=== PATIENT | female | born 1940 | race Hispanic/Latino ===

== ENCOUNTER 2019-03-04 09:00 | Emergency (ER) | payer OTHER ==
[~2019-03-04] VITALS: Ht 157.5 cm; Wt 59.0 kg
--- OUTSIDE RECORDS SUMMARY | 2019-03-04 09:02 | XMS REPORT | Clinical Summary ---
Author Author [facility]ET [facility] Address Unknown Phone Unavailable Care Team Providers Care Hemodialysis Charge Nurse Name Role Phone Amber Gonzalez MD PCP Unavailable Allergies Comments Active Allergy Reactions Severity Noted Date Ciprofloxacin Rash Low 10/16/2016 Benzonatate 10/16/2016 Medications End Date Status Medication Sig Dispensed Refills Start Date Active CLOPIDOGREL BISULFATE Take 75 mg by 0 (PLAVIX ORAL) mouth daily . Active ASPIRIN ORAL Take 325 mg 0 by mouth daily . Active pantoprazole (PROTONIX) Take 40 mg by 0 40 MG tablet mouth daily. Active rosuvastatin (CRESTOR) 10 Take 40 mg by 0 MG tablet mouth daily . Active atenolol (TENORMIN) 25 MG Take 25 mg by 0 tablet mouth daily. Active calcium carbonate Take 600 mg 0 (OS-CHRISTIANE) 600 mg (1,500 by mouth 2 mg) Tab (two) times daily with breakfast and dinner. Active cycloSPORINE (RESTASIS) 1 drop 2 0 0.05 % ophthalmic (two) times emulsion daily. Active fenofibrate micronized Take 200 mg 0 (LOFIBRA) 200 MG capsule by mouth every morning before breakfast. Active omega-3 fatty acids-fish Take 2 g by 0 oil 340-1,000 mg Cap per mouth 2 (two) capsule times daily. Active levothyroxine (SYNTHROID, Take 75 mcg 0 LEVOTHROID) 75 MCG tablet by mouth Every morning on an empty stomach. Active sertraline (ZOLOFT) 25 MG Take 100 mg 0 tablet by mouth daily. Active ranitidine (ZANTAC) 150 Take 150 mg 0 MG tablet by mouth 2 (two) times daily. Active iron, carbonyl 45 mg Tab Take by 0 tablet mouth. Active furosemide (LASIX) 20 MG Take 20 mg by 0 tablet mouth daily. 05/24/2018 cefUROXime (CEFTIN) 250 Take 1 tablet 14 tablet 0 201 MG tablet (250 mg 8 total) by mouth every 12 (twelve) hours for 7 days. 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 Hypothyroidism (acquired) 10/16/2016 Encounters Care Team Description Date Type Specialty Bruno Bell MD Other closed fracture of distal end of left radius, initial encounter (Primary Dx) 09/02/2018 Emergency Emergency Medicine 09/02/2018 Travel Karlos Shea MD Fall, initial encounter (Primary Dx); Contusion of face, initial encounter; Acute urinary tract infection 05/17/2018 Emergency Emergency Medicine after 03/03/2018 Social History Date Tobacco Use Types Packs/Day Years Used Never Smoker Smokeless Tobacco: Never Used Alcohol Use Drinks/Week oz/Week Comments No Sex Assigned at Date Recorded Not on file Industry Job Start Date Occupation Not on file Not on file Not on file Travel End Travel History Travel Start No recent travel history available. Last Filed Vital Signs Time Taken Vital Sign Reading 09/02/2018 5:02 AM [employer] Blood Pressure 148/76 09/02/2018 5:02 AM [employer] Pulse 84 09/02/2018 5:02 AM [employer] Temperature 36.9 C (98.4 F) 09/02/2018 5:02 AM [employer] Respiratory Rate 16 09/02/2018 5:02 AM [employer] Oxygen Saturation 97% - Inhaled Oxygen - Concentration 09/02/2018 3:40 AM [employer] Weight 60.8 kg (134 lb) 09/02/2018 3:40 AM [employer] Height 157.5 cm (5' 2") 09/02/2018 3:40 AM [employer] Body Mass Index 24.51 Plan of Treatment Not on file Procedures Comments Procedure Name Priority Date/Time Associated Diagnosis XR WRIST LEFT COMPLETE STAT 09/02/2018 (MIN 3 VIEWS) 3:52 AM [employer] XR SHOULDER LEFT COMPLETE STAT 05/17/2018 MIN 2 VIEWS 12:51 PM CDT XR CHEST PA OR AP 1 VIEW STAT 05/17/2018 IN DEPT. 12:51 PM CDT URINALYSIS W/ REFLEX STAT 05/17/2018 URINE CULTURE 12:47 PM CDT CBC W/PLT COUNT & AUTO STAT 05/17/2018 DIFFERENTIAL 12:46 PM CDT BASIC METABOLIC PANEL (7) STAT 05/17/2018 12:46 PM CDT CBC W/PLT COUNT & AUTO STAT 05/17/2018 DIFFERENTIAL 12:[address] MAXILLOFACIAL WITHOUT STAT 05/17/2018 IV CONTRAST 12:[address] SPINE CERVICAL WITHOUT STAT 05/17/2018 IV CONTRAST 12:[address] BRAIN WITHOUT IV STAT 05/17/2018 CONTRAST 12:41 PM CDT after 03/03/2018 Results * XR wrist complete 3 views min left (09/02/2018 3:52 AM [employer]) Specimen Narrative Performed At FINAL REPORT [facility] EXAMINATION: LEFT WRIST SERIES, 3 VIEWS CLINICAL INDICATION: ARM INJURY, PAIN IMPRESSION: The bones demonstrate demineralization compatible with senescent osteopenia. Degenerative osteoarthritic changes are also noted, most pronounced at the radiocarpal and first carpal metacarpal joints. The distal radial metaphysis is associated with focal cortical buckling with an adjacent nondisplaced radiolucency concerning for fracture, chronicity indeterminate but possibly acute. Recommend clinical correlation with patient's point of maximum tenderness and mechanism of injury. Soft tissues at the level of the wrist also appear markedly edematous/swollen. Recommend clinical correlation regarding a superimposed hematoma-contusion. Diffuse calcific atherosclerotic changes are noted. Signed: Jourdan Singh MD Report Verified Date/Time:09/02/2018 04:08:26 Reading Location: [address] Reading Room Procedure Note Interface, External Ris In - 09/02/2018 4:10 AM [employer] FINAL REPORT EXAMINATION: LEFT WRIST SERIES, 3 VIEWS CLINICAL INDICATION: ARM INJURY, PAIN IMPRESSION: The bones demonstrate demineralization compatible with senescent osteopenia. Degenerative osteoarthritic changes are also noted, most pronounced at the radiocarpal and first carpal metacarpal joints. The distal radial metaphysis is associated with focal cortical buckling with an adjacent nondisplaced radiolucency concerning for fracture, chronicity indeterminate but possibly acute. Recommend clinical correlation with patient's point of maximum tenderness and mechanism of injury. Soft tissues at the level of the wrist also appear markedly edematous/swollen. Recommend clinical correlation regarding a superimposed hematoma-contusion. Diffuse calcific atherosclerotic changes are noted. Signed: Jourdan Singh MD Report Verified Date/Time: 09/02/2018 04:08:26 Reading Location: [address] Reading Room Performing Organization Address [facility] Phone Number [facility] * XR shoulder complete 2 views min left (05/17/2018 12:51 PM CDT) Specimen Narrative Performed At FINAL REPORT [facility] [place] Left shoulder, two images. HISTORY: Shoulder pain. Fall. COMPARISON: None IMPRESSION: Frontal views of the left shoulder demonstrate grossly normal alignment without evidence for fracture. Signed: Charles Gilliland MD Report Verified Date/Time:05/17/2018 13:32:53 Reading Location: [facility] Reading Room Procedure Note Interface, External Ris In - 05/17/2018 1:43 PM CDT FINAL REPORT Left shoulder, two images. HISTORY: Shoulder pain. Fall. COMPARISON: None IMPRESSION: Frontal views of the left shoulder demonstrate grossly normal alignment without evidence for fracture. Signed: Charles Gilliland MD Report Verified Date/Time: 05/17/2018 13:32:53 Reading Location: [facility] Reading Room Performing Organization Address [facility] Center[facility] Phone Number [facility] * XR chest PA or AP 1 view in dept (05/17/2018 12:51 PM CDT) Specimen Narrative Performed At FINAL REPORT [facility] AP chest HISTORY: Fall COMPARISON: 10/16/2016 IMPRESSION: No acute osseous findings. Heart size upper limits of normal. Faint interstitial prominence may reflect mild edema. Signed: Charles Gilliland MD Report Verified Date/Time:05/17/2018 13:33:32 Reading Location: [facility] Reading Room Procedure Note Interface, External Ris In - 05/17/2018 1:43 PM CDT FINAL REPORT AP chest HISTORY: Fall COMPARISON: 10/16/2016 IMPRESSION: No acute osseous findings. Heart size upper limits of normal. Faint interstitial prominence may reflect mild edema. Signed: Charles Gilliland MD Report Verified Date/Time: 05/17/2018 13:33:32 Reading Location: [facility] Reading Room Performing Organization Address City/State/Zipcode Phone Number RIS * Urinalysis w/Microscopic + Reflex to Culture (05/17/2018 12:47 PM CDT) Color, UA Yellow [facility] Clarity, UA Clear [facility] Specific [place], UA 1.015 1.001 - 1.035 [facility] pH, UA 6.5 5.0 - 8.0 [facility] Protein, UA Negative Negative [facility] Glucose, UA Negative Negative [facility] Ketones, UA Negative Negative [facility] Bilirubin, UA Negative Negative [facility] Blood, UA Negative Negative [facility] Nitrite, UA Negative Negative [facility] Leukocytes, UA Small (A) Negative [facility] Urobilinogen, UA 3.0 (H) 0.2 - 1.0 mg/dL [facility] RBC, UA 0 /HPF [facility] WBC, UA 6 /HPF [facility] Mucus Rare [facility] Specimen Source [facility] Specimen Urine Performing Organization Address City/State/Zipcode Phone Number [facility] [address] [place] [address] [facility] * CBC with platelet count + automated diff (05/17/2018 12:46 PM CDT) WBC 5.0 3.5 - 10.5 K/L [facility] RBC 3.78 (L) 3.93 - 5.22 M/L [facility] Hemoglobin 10.9 (L) 11.2 - 15.7 GM/DL [facility] Hematocrit 32.2 (L) 34.1 - 44.9 % [facility] MCV 85.2 79.4 - 94.8 fL [facility] MCH 28.8 25.6 - 32.2 pg [facility] MCHC 33.9 32.2 - 35.5 GM/DL [facility] RDW 14.4 11.7 - 14.4 % [facility] Platelets 144 (L) 150 - 450 K/CU MM [facility] MPV 12.5 (H) 9.4 - 12.3 fL [facility] nRBC 0 0 - 0 /100 WBC [facility] % Neutros 51 % [facility] % Lymphs 37 % [facility] % Monos 10 % [facility] % Eos 2 % [facility] % Baso 0 % [facility] # Neutros 2.56 1.56 - 6.13 K/L [facility] # Lymphs 1.85 1.18 - 3.74 K/L [facility] # Monos 0.49 (H) 0.24 - 0.36 K/L [facility] # Eos 0.09 0.04 - 0.36 K/L [facility] # Baso 0.02 0.01 - 0.08 K/L [facility] Immature 1 0 - 1 % [facility] Granulocytes-[facility] Specimen Blood Performing Organization Address City/[facility] Centercode Phone Number [address] [address] [facility] * Basic metabolic panel (Na, K+, Cl, CO2, Glu, Ca, BUN, Cr) (05/17/2018 12:46 PM CDT) Sodium 139 136 - 145 meq/L [facility] Potassium 3.6 3.5 - 5.1 meq/L [facility] Chloride 101 98 - 107 meq/L [facility] CO2 29 22 - 29 meq/L [facility] BUN 29 (H) 7 - 21 mg/dL [facility] Creatinine 1.59 (H) 0.57 - 1.25 mg/dL [facility] Glucose 126 (H) 70 - 105 mg/dL [facility] Calcium 9.8 8.4 - 10.2 mg/dL [facility] EGFR Comment: INSUFFICIENT CLINICAL mL/min/1.73 sq m [facility] DATA TO CALCULATE ESTIMATED [facility] GFR. Specimen Blood Performing Organization Address City/[facility]/Zipcode Phone Number [address] [address] [facility] * CT spine cervical without IV contrast (05/17/2018 12:41 PM CDT) Specimen Narrative Performed At FINAL REPORT GE [facility] CT cervical spine without contrast INDICATION: Fall, jaw pain, arm pain COMPARISON: Not available TECHNIQUE: Axial noncontrast CT images of the cervical spine were obtained. Axially acquired data were reformatted in coronal and sagittal planes for further analysis. This exam was performed according to our departmental dose optimization program which includes automated exposure control, adjustment of the mA and/or kV according to patient size and/or use of iterative reconstruction technique. FINDINGS: Osteopenia limits sensitivity for fractures. There is chronic or degenerative mild vertebral height loss at C5 and C6. There is chronic appearing T2 superior endplate compression deformity without visible fracture line or perivertebral edema. Vertebral height and alignment are otherwise maintained. There is no evident facet joint subluxation. There is C1-2 arthropathy. The spinal canal and neural foramina are not well assessed without intrathecal contrast. There is multilevel degenerative disc disease, spondylosis, and facet arthropathy. Canal stenosis appears moderate at C4-5 and C5-6. Neural foraminal stenoses are potentially significant at C5-6, with other lesser foraminal stenoses. The imaged lung apices demonstrate no pneumothorax. There is atherosclerotic disease, including in the cervical carotid arteries. There are nuchal ligament dystrophic calcifications. IMPRESSION: 1. Chronic appearing mild superior endplate compression deformity at T2. No specific evidence of acute cervical spine fracture. 2. Multilevel degenerative spine changes as discussed above. Signed: Halina Zepeda MD Report Verified Date/Time:05/17/2018 13:27:22 Reading Location: [address] Neuro Reading Room Procedure Note Interface, External Ris In - 05/17/2018 1:29 PM CDT FINAL REPORT CT cervical spine without contrast INDICATION: Fall, jaw pain, arm pain COMPARISON: Not available TECHNIQUE: Axial noncontrast CT images of the cervical spine were obtained. Axially acquired data were reformatted in coronal and sagittal planes for further analysis. This exam was performed according to our departmental dose optimization program which includes automated exposure control, adjustment of the mA and/or kV according to patient size and/or use of iterative reconstruction technique. FINDINGS: Osteopenia limits sensitivity for fractures. There is chronic or degenerative mild vertebral height loss at C5 and C6. There is chronic appearing T2 superior endplate compression deformity without visible fracture line or perivertebral edema. Vertebral height and alignment are otherwise maintained. There is no evident facet joint subluxation. There is C1-2 arthropathy. The spinal canal and neural foramina are not well assessed without intrathecal contrast. There is multilevel degenerative disc disease, spondylosis, and facet arthropathy. Canal stenosis appears moderate at C4-5 and C5-6. Neural foraminal stenoses are potentially significant at C5-6, with other lesser foraminal stenoses. The imaged lung apices demonstrate no pneumothorax. There is atherosclerotic disease, including in the cervical carotid arteries. There are nuchal ligament dystrophic calcifications. IMPRESSION: 1. Chronic appearing mild superior endplate compression deformity at T2. No specific evidence of acute cervical spine fracture. 2. Multilevel degenerative spine changes as discussed above. Signed: Halina Zepeda MD Report Verified Date/Time: 05/17/2018 13:27:22 Reading Location: [address] Neuro Reading Room Performing Organization Address City/State/Zipcode Phone Number [employer] * CT maxillofacial without IV contrast (05/17/2018 12:41 PM CDT) Specimen Narrative Performed At FINAL REPORT [employer] CT maxillofacial and CT head without contrast INDICATION: Fall, jaw pain. COMPARISON: CT head 10/16/2016 TECHNIQUE: Axial noncontrast CT images of the maxillofacial structures and head were obtained. Coronal and sagittal reconstruction images were generated. This exam was performed according to our departmental dose optimization program which includes automated exposure control, adjustment of the mA and/or kV according to patient size and/or use of iterative reconstruction technique. FINDINGS: CT maxillofacial: There is facial soft tissue swelling. No acute facial bone or orbital wall fracture is seen. There has been bilateral cataract surgery. There is no retrobulbar hematoma bilaterally. A small left posterior ethmoid sinus osteoma and mild bilateral ethmoid sinus chronic mucosal thickening are noted. The remaining sinuses are well aerated, with no air-fluid levels. The mastoid air cells are clear. Cervical spine degenerative changes and cervical carotid arteries chronic disease are partially imaged. CT head: There is no scalp hematoma or acute calvarial fracture. No acute intra or extra-axial hemorrhage is seen. Volume loss with temporal lobe predominance, extensive vascular calcifications, and vertebrobasilar dolichoectasia are again seen. Microvascular ischemic changes are chronic appearing, including a tiny right caudate nucleus infarct. There is no hydrocephalus, mass effect, or midline shift. There is mild chronic sinus mucosal thickening. The mastoid air cells are clear. There has been cataract surgery. Other maxillofacial findings are discussed above. IMPRESSION: 1. No acute facial or orbital fracture or retrobulbar hematoma. 2. No acute intracranial hemorrhage or calvarial fracture. 3. Additional chronic appearing findings as discussed above. Signed: Halina Zepeda MD Report Verified Date/Time:05/17/2018 13:27:58 Reading Location: [id number] Neuro Reading Room Procedure Note Interface, External Ris In - 05/17/2018 1:30 PM CDT FINAL REPORT CT maxillofacial and CT head without contrast INDICATION: Fall, jaw pain. COMPARISON: CT head 10/16/2016 TECHNIQUE: Axial noncontrast CT images of the maxillofacial structures and head were obtained. Coronal and sagittal reconstruction images were generated. This exam was performed according to our departmental dose optimization program which includes automated exposure control, adjustment of the mA and/or kV according to patient size and/or use of iterative reconstruction technique. FINDINGS: CT maxillofacial: There is facial soft tissue swelling. No acute facial bone or orbital wall fracture is seen. There has been bilateral cataract surgery. There is no retrobulbar hematoma bilaterally. A small left posterior ethmoid sinus osteoma and mild bilateral ethmoid sinus chronic mucosal thickening are noted. The remaining sinuses are well aerated, with no air-fluid levels. The mastoid air cells are clear. Cervical spine degenerative changes and cervical carotid arteries chronic disease are partially imaged. CT head: There is no scalp hematoma or acute calvarial fracture. No acute intra or extra-axial hemorrhage is seen. Volume loss with temporal lobe predominance, extensive vascular calcifications, and vertebrobasilar dolichoectasia are again seen. Microvascular ischemic changes are chronic appearing, including a tiny right caudate nucleus infarct. There is no hydrocephalus, mass effect, or midline shift. There is mild chronic sinus mucosal thickening. The mastoid air cells are clear. There has been cataract surgery. Other maxillofacial findings are discussed above. IMPRESSION: 1. No acute facial or orbital fracture or retrobulbar hematoma. 2. No acute intracranial hemorrhage or calvarial fracture. 3. Additional chronic appearing findings as discussed above. Signed: Halina Zepeda MD Report Verified Date/Time: 05/17/2018 13:27:58 Reading Location: [address] Neuro Reading Room Performing Organization Address City/State/Zipcode Phone Number [employer] * CT brain without IV contrast (05/17/2018 12:41 PM CDT) Specimen Narrative Performed At FINAL REPORT [employer] CT maxillofacial and CT head without contrast INDICATION: Fall, jaw pain. COMPARISON: CT head 10/16/2016 TECHNIQUE: Axial noncontrast CT images of the maxillofacial structures and head were obtained. Coronal and sagittal reconstruction images were generated. This exam was performed according to our departmental dose optimization program which includes automated exposure control, adjustment of the mA and/or kV according to patient size and/or use of iterative reconstruction technique. FINDINGS: CT maxillofacial: There is facial soft tissue swelling. No acute facial bone or orbital wall fracture is seen. There has been bilateral cataract surgery. There is no retrobulbar hematoma bilaterally. A small left posterior ethmoid sinus osteoma and mild bilateral ethmoid sinus chronic mucosal thickening are noted. The remaining sinuses are well aerated, with no air-fluid levels. The mastoid air cells are clear. Cervical spine degenerative changes and cervical carotid arteries chronic disease are partially imaged. CT head: There is no scalp hematoma or acute calvarial fracture. No acute intra or extra-axial hemorrhage is seen. Volume loss with temporal lobe predominance, extensive vascular calcifications, and vertebrobasilar dolichoectasia are again seen. Microvascular ischemic changes are chronic appearing, including a tiny right caudate nucleus infarct. There is no hydrocephalus, mass effect, or midline shift. There is mild chronic sinus mucosal thickening. The mastoid air cells are clear. There has been cataract surgery. Other maxillofacial findings are discussed above. IMPRESSION: 1. No acute facial or orbital fracture or retrobulbar hematoma. 2. No acute intracranial hemorrhage or calvarial fracture. 3. Additional chronic appearing findings as discussed above. Signed: Halina Zepeda MD Report Verified Date/Time:05/17/2018 13:27:58 Reading Location: [address] Neuro Reading Room Procedure Note Interface, External Ris In - 05/17/2018 1:30 PM CDT FINAL REPORT CT maxillofacial and CT head without contrast INDICATION: Fall, jaw pain. COMPARISON: CT head 10/16/2016 TECHNIQUE: Axial noncontrast CT images of the maxillofacial structures and head were obtained. Coronal and sagittal reconstruction images were generated. This exam was performed according to our departmental dose optimization program which includes automated exposure control, adjustment of the mA and/or kV according to patient size and/or use of iterative reconstruction technique. FINDINGS: CT maxillofacial: There is facial soft tissue swelling. No acute facial bone or orbital wall fracture is seen. There has been bilateral cataract surgery. There is no retrobulbar hematoma bilaterally. A small left posterior ethmoid sinus osteoma and mild bilateral ethmoid sinus chronic mucosal thickening are noted. The remaining sinuses are well aerated, with no air-fluid levels. The mastoid air cells are clear. Cervical spine degenerative changes and cervical carotid arteries chronic disease are partially imaged. CT head: There is no scalp hematoma or acute calvarial fracture. No acute intra or extra-axial hemorrhage is seen. Volume loss with temporal lobe predominance, extensive vascular calcifications, and vertebrobasilar dolichoectasia are again seen. Microvascular ischemic changes are chronic appearing, including a tiny right caudate nucleus infarct. There is no hydrocephalus, mass effect, or midline shift. There is mild chronic sinus mucosal thickening. The mastoid air cells are clear. There has been cataract surgery. Other maxillofacial findings are discussed above. IMPRESSION: 1. No acute facial or orbital fracture or retrobulbar hematoma. 2. No acute intracranial hemorrhage or calvarial fracture. 3. Additional chronic appearing findings as discussed above. Signed: Halina Zepeda MD Report Verified Date/Time: 05/17/2018 13:27:58 Reading Location: [address] Neuro Reading Room Performing Organization Address City/State/Zipcode Phone Number GE RIS after 03/03/2018 Insurance Payer Benefit Subscriber ID Type Phone Address Plan / Group TEX[employer] TEX[employer] xxxxxxxxx [facility] Advance Directives For more information, please contact: [address] [address] Date Inactivated Comments Code Status Date Activated 10/17/2016 5:09 PM Full Code 10/16/2016 8:42 PM This code status was determined by: Patient
--- OUTSIDE RECORDS SUMMARY | 2019-03-04 09:02 | XMS REPORT ---
Author Author [facility] Address Unknown Phone Unavailable Care Team Providers Care Real Estate Appraiser Name Role Phone TREMAYNE CURTIS Unavailable Unavailable Problems This patient has no known problems. Allergies, Adverse Reactions, Alerts This patient has no known allergies or adverse reactions. Medications This patient has no known medications. Results Test Description Test Time Test Comments Text Results Atomic Results Result Comments RAD, WRIST, LEFT, COMPLETE (MIN 3 VIEWS) 2018-09-02 04:08:00 Reason for exam:- >ARM INJURY FINAL REPORT EXAMINATION: LEFT WRIST SERIES, 3 [...] Diffuse calcific atherosclerotic changes are noted. Signed: William Singh MDReport Verified Date/Time: 09/02/2018 04:08:26 Reading Location: [address] Reading Room ALYSIS W/ REFLEX URINE CULTURE 2018-05-17 15:04:00 COLOR (BEAKER) (test cnwi=471) Yellow CLARITY (BEAKER) (test zfps=739) Clear SPECIFIC GRAVITY UA (BEAKER) (test hdug=381) 1.015 1.001-1.035 PH UA (BEAKER) (test aeix=682) 6.5 5.0-8.0 PROTEIN UA (BEAKER) (test lsji=703) Negative Negative GLUCOSE UA (BEAKER) (test yplf=204) Negative Negative KETONES UA (BEAKER) (test rloi=046) Negative Negative BILIRUBIN UA (BEAKER) (test hkha=383) Negative Negative BLOOD UA (BEAKER) (test tcdq=156) Negative Negative NITRITE UA (BEAKER) (test swez=387) Negative Negative LEUKOCYTE ESTERASE UA (BEAKER) (test cljp=229) Small Negative UROBILINOGEN UA (BEAKER) (test xoov=753) 3.0 mg/dL 0.2-1.0 RBC UA (BEAKER) (test untr=098) 0 /HPF WBC UA (BEAKER) (test spjh=822) 6 /HPF MUCUS (BEAKER) (test vnra=1157) Rare SOURCE(BEAKER) (test ilso=4372) BASIC METABOLIC [id number] 14:02:00* Test Item Value Reference Range Comments SODIUM (BEAKER) (test ghri=053) 139 meq/L 136-145 POTASSIUM (BEAKER) (test mkwn=699) 3.6 meq/L 3.5-5.1 CHLORIDE (BEAKER) (test cyjn=954) 101 meq/L 98-107 CO2 (BEAKER) (test kfda=250) 29 meq/L 22-29 BLOOD UREA NITROGEN (BEAKER) (test ftsu=060) 29 mg/dL 7-21 CREATININE (BEAKER) (test qtcy=298) 1.59 mg/dL 0.57-1.25 GLUCOSE RANDOM (BEAKER) (test fbrp=389) 126 mg/dL 70-105 CALCIUM (BEAKER) (test szbr=001) 9.8 mg/dL 8.4-10.2 EGFR (BEAKER) (test luxw=9840) mL/min/1.73 sq m INSUFFICIENT CLINICAL DATA TO CALCULATE ESTIMATED GFR. RAD, CHEST, PA OR AP, 1 [id number] 13:33:00Reason for exam:->FALLReason for exam:->ARM PAINReason for exam:->JAW PAINFINAL REPORT AP chest HISTORY: Fall COMPARISON: 10/16/2016 IMPRESSION:No acute osseous findings. Heart size upper limits of normal. Faint interstitial prominence may reflect mild edema. Signed: Charles Gilliland MDReport Verified Date/Time: 05/17/2018 13:33:32 Reading Location: [facility] Reading Room , SHOULDER, COMPLETE (MIN 2 VIEWS), [id number] 13:32:00Reason for exam:->FALLReason for exam:->ARM PAINReason for exam:->JAW PAINFINAL REPORT Left shoulder, two images. HISTORY: Shoulder pain. Fall. COMPARISON: None IMPRESSION:Frontal views of the left shoulder demonstrate grossly normal alignment without evidence for fracture. Signed: Charles Gilliland MDReport Verified Date/Time: 05/17/2018 13:32:53 Reading Location: [facility] Reading Room , SPINE, CERVICAL, WO [id number] 13:27:00Reason for exam:->FALLReason for exam:->ARM PAINReason for exam:->JAW PAINWhat is the patient's sedation requirement?->No SedationFINAL REPORT CT cervical spine without contrast INDICATION: [...] size and/or use of iterative reconstruction technique. FINDINGS:Osteopenia limits sensitivity for fractures. There is chronic [...] changes as discussed above. Signed: Halina Zepeda MDReport Verified Date/Time: 05/17/2018 13:27:22 Reading Location: [address] Neuro Reading Room , BRAIN, WITHOUT [id number] 13:27:00Reason for exam:->FALLReason for exam:->ARM PAINReason for exam:->JAW PAINWhat is the patient's sedation requirement?->No SedationFINAL REPORT CT maxillofacial and CT head without [...] use of iterative reconstruction technique. FINDINGS: CT maxillofacial:There is facial soft tissue swelling. No acute [...] findings as discussed above. Signed: Halina Zepeda MDReport Verified Date/Time: 05/17/2018 13:27:58 Reading Location: [facility] Neuro Reading Room , MAXILLOFACIAL AREA, WO [id number] 13:27:00Reason for exam:- >FALLReason for exam:->ARM PAINReason for exam:->JAW PAINWhat is the patient's sedation requirement?->No SedationFINAL REPORT CT maxillofacial and CT head without [...] use of iterative reconstruction technique. FINDINGS: CT maxillofacial:There is facial soft tissue swelling. No acute facial bone or orbital wall fracture is seen. There has been bilateral cataract surgery. There is no retrobulbar hematoma bilaterally. A small left posterior ethmoid sinus osteoma and mild bilateral et hmoid sinus chronic mucosal thickening are noted. The remaining sinuses are well aerated, with no air-fluid levels. The mastoid air cells are clear. Cervical sp ine degenerative changes and cervical carotid arteries chronic disease are parti ally imaged. CT head: There is no scalp hematoma or acute calvarial fracture. No acute intra or extra-axial hemorrhage is seen. Volume loss with temporal lobe p redominance, extensive vascular calcifications, and vertebrobasilar dolichoectas ia are again seen. Microvascular ischemic changes are chronic appearing, includi ng a tiny right caudate nucleus infarct. There is no hydrocephalus, mass effect, or midline shift. There is mild chronic sinus mucosal thickening. The mastoid a ir cells are clear. There has been cataract surgery. Other maxillofacial finding s are discussed above. IMPRESSION: 1. No acute facial or orbital fracture or ret robulbar hematoma. 2. No acute intracranial hemorrhage or calvarial fracture. 3. Additional chronic appearing findings as discussed above. Signed: Nicole Zepeda MDReport Verified Date/Time: 05/17/2018 13:27:58 Reading Location: [facility] Neuro Reading Room W/PLT COUNT & AUTO [id number] 13:25:00 * Test Item Value Reference Range Comments WHITE BLOOD CELL COUNT (BEAKER) (test icvr=554) 5.0 K/ L 3.5-10.5 RED BLOOD CELL COUNT (BEAKER) (test cgrq=507) 3.78 M/ L 3.93-5.22 HEMOGLOBIN (BEAKER) (test qapi=841) 10.9 GM/DL 11.2-15.7 HEMATOCRIT (BEAKER) (test qdzf=641) 32.2 % 34.1-44.9 MEAN CORPUSCULAR VOLUME (BEAKER) (test xuly=761) 85.2 fL 79.4-94.8 MEAN CORPUSCULAR HEMOGLOBIN (BEAKER) (test wzjo=498) 28.8 pg 25.6-32.2 MEAN CORPUSCULAR HEMOGLOBIN CONC (BEAKER) (test nhdh=020) 33.9 GM/DL 32.2-35.5 RED CELL DISTRIBUTION WIDTH (BEAKER) (test usge=632) 14.4 % 11.7-14.4 PLATELET COUNT (BEAKER) (test mnon=485) 144 K/CU MM 150-450 MEAN PLATELET VOLUME (BEAKER) (test qdhg=679) 12.5 fL 9.4-12.3 NUCLEATED RED BLOOD CELLS (BEAKER) (test gnrx=885) 0 /100 WBC 0-0 NEUTROPHILS RELATIVE PERCENT (BEAKER) (test iaar=657) 51 % LYMPHOCYTES RELATIVE PERCENT (BEAKER) (test wesh=402) 37 % MONOCYTES RELATIVE PERCENT (BEAKER) (test jcwr=021) 10 % EOSINOPHILS RELATIVE PERCENT (BEAKER) (test sxhr=130) 2 % BASOPHILS RELATIVE PERCENT (BEAKER) (test cwkd=275) 0 % NEUTROPHILS ABSOLUTE COUNT (BEAKER) (test ohwm=882) 2.56 K/ L 1.56-6.13 LYMPHOCYTES ABSOLUTE COUNT (BEAKER) (test dooe=396) 1.85 K/ L 1.18-3.74 MONOCYTES ABSOLUTE COUNT (BEAKER) (test dqdp=893) 0.49 K/ L 0.24-0.36 EOSINOPHILS ABSOLUTE COUNT (BEAKER) (test oznv=072) 0.09 K/ L 0.04-0.36 BASOPHILS ABSOLUTE COUNT (BEAKER) (test niyu=475) 0.02 K/ L 0.01-0.08 IMMATURE GRANULOCYTES-RELATIVE PERCENT (BEAKER) (test xxci=8494) 1 % 0-1
[2019-03-04] MEDS ORDERED: ACETAMINOPHEN 325 MG TAB PO NR (09:15)
--- NOTE | 2019-03-04 10:15 | Diagnostic Imaging Report ---
History:Fall, hit left side of the face Comparison studies:None Technique: Axial images were obtained from the skull base to the vertex. Coronal and sagittal images reconstructed from the axial data. Intravenous contrast: None Dose modulation, iterative reconstruction, and/or weight based adjustment of the mA/kV was utilized to reduce the radiation dose to as low as reasonably achievable. Findings: Scalp/skull: No abnormalities. Extra-axial spaces: No masses. No fluid collections. Brain sulci: Mildly prominent. Ventricles: Mild compensatory dilatation. No hydrocephalus. Parenchyma: Small hypodensities in the supratentorial white matter are small vessel ischemic changes. No masses, hemorrhage, acute or chronic cortical vascular insults. Sellar/suprasellar region: No abnormalities. Craniocervical junction: Patent foramen magnum. No Chiari one malformation. Incidental findings: Atherosclerotic calcifications in the carotid siphons and dolichoectatic right vertebral artery artery . Bilateral cataract surgery changes Impression: No acute abnormalities. Chronic findings: 1. Mild generalized volume loss. 2. Mild supratentorial white matter small vessel ischemic changes. Signed by: DR Wilfred Caldera M.D. on 03/04/2019 10:12 AM
--- NOTE | 2019-03-04 10:28 | Diagnostic Imaging Report ---
History:Fall, hit left side of the face Comparison studies: None Technique: Axial images were obtained through the maxillofacial region. Coronal and sagittal images reconstructed from the axial data. Intravenous contrast: None Dose modulation, iterative reconstruction, and/or weight based adjustment of the mA/kV was utilized to reduce the radiation dose to as low as reasonably achievable. Findings: Soft tissues: Soft tissue hematoma at the left premaxillary and right zygomatic region. Atherosclerotic calcifications of the carotid bulbs Bones: No fractures or bone abnormalities. Orbits: Globes: No acute abnormality. Bilateral cataract surgery changes Extra or intraconal abnormalities: None. Paranasal sinuses: Clear Degenerative changes of the atlantoaxial joint partially visualized. IMPRESSION: 1. Left premaxillary and prezygomatic soft tissue hematoma without underlying fracture Signed by: DR Wilfred Caldera M.D. on 03/04/2019 10:25 AM
--- NOTE | 2019-03-04 10:32 | Diagnostic Imaging Report ---
History: Fall, hit left side of the face Comparison studies: None Technique: Axial images were obtained through the cervical region.. Coronal and sagittal images reconstructed from the axial data.. Intravenous contrast: None Dose modulation, iterative reconstruction, and/or weight based adjustment of the mA/kV was utilized to reduce the radiation dose to as low as reasonably achievable. Findings: Fractures: None. Soft tissues: No gross abnormalities. Atlantoaxial articulation: Degenerative changes without acute abnormality. Alignment: Normal lordosis. No scoliosis. Cervicomedullary junction: No abnormalities. The foramen magnum is patent. Vertebrae: No infection or neoplasm. Degenerative changes: At C5-6, moderate right and mild left foraminal narrowing, the remaining foramina are grossly patent (no moderate or severe narrowing). Small disc osteophyte complexes from C4 through C7 results in mild canal stenosis IMPRESSION: 1. No acute cervical spine abnormalities. Degenerative changes as described above. 2. Cannot exclude ligament, spinal cord and or vascular abnormalities on the basis of this examination. Signed by: DR Wilfred Caldera M.D. on 03/04/2019 10:28 AM
[2019-03-04 10:49] VITALS: BP 138/50
== END 2019-03-04 10:54 | disposition home or self-care (01) ==
LOC: ER 09:00
DX: S00.12XA Contusion of left eyelid and periocular area, initial encounter (principal); M54.2 Cervicalgia; W06.XXXA Fall from bed, initial encounter; Y93.84 Activity, sleeping; Y92.003 Bedroom of unspecified non-institutional (private) residence as the place of occurrence of the external cause; G30.9 Alzheimer's disease, unspecified; F02.80 Dementia in other diseases classified elsewhere, unspecified severity, without behavioral disturbance, psychotic disturbance, mood disturbance, and anxiety; I10 Essential (primary) hypertension; E11.9 Type 2 diabetes mellitus without complications; I51.9 Heart disease, unspecified
CPT/HCPCS: 70450; 70486; 72125; 99283

== ENCOUNTER 2020-03-12 10:51 | Emergency (ER) | payer OTHER ==
[~2020-03-12] VITALS: Ht 157.5 cm; Wt 59.0 kg
--- OUTSIDE RECORDS SUMMARY | 2020-03-12 10:54 | XMS REPORT | Clinical Summary ---
Author Author [facility] Address Unknown Phone Unavailable Care Team Providers Care Soil Checker Name Role Phone Amber Gonzalez MD PCP [...] 20 mg by 0 tablet mouth daily. 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 Last Filed Vital Signs Not on file Plan of Treatment Not on file Results Not on fileafter 03/12/2019 Insurance Payer Benefit Subscriber ID Type Phone Address Plan / Group TEXAN[employer] TEX[facility]US x[facility] [phone] [phone] [address] [facility] (Home) [place] [address] Advance Directives For more information, please contact: [facility] [address] [place] [address] Date Inactivated Comments Code Status Date Activated 10/17/2016 5:09 PM Full Code 10/16/2016 8:42 PM This code status was determined by: Patient
--- OUTSIDE RECORDS SUMMARY | 2020-03-12 10:54 | XMS REPORT ---
Author Author [facility] t Organization [facility] Address [address] [place] [address] Phone Unavailable Care Team Providers Care Violin Repairer Name Role Phone CHOLO Plummer, Moi PECK PCP Alex HOBSON Attphys Unavailable TREMAYNE CURTIS Attphys Unavailable Payers Payer Name Policy Type Policy Number Effective Date Expiration Date Yumi Enriquez [id number] 2018 00:00:00 [facility] Problems This patient has no known problems. Allergies, Adverse Reactions, Alerts This patient has no known allergies or adverse reactions. Medications This patient has no known medications. Procedures Procedure Date / Time Performed Performing Clinician Sour e Computed tomography of brain without radiopaque contrast 201 06-30-10 00:00:00 IRINEO HOBSON [facility] Computed tomography of cervical spine without contrast 03-04 00:00:00 IRINEO HOBSON [facility] CT maxillofacial area wo contrast 2019-03-04 00:00:[address] [facility] Encounters Start Date/Time End Date/Time Encounter Type Admission Type Attendi [facility] Care Department Encounter ID Source 2019-03-04 09:00:2019-03-04 10:54:00 Departed Emergency Room 1 IRINEO HOBSON [facility] [id number] [facility] Results Test Description Test Time Test Comments Results Result Comments Source CT CERVICAL SPINE WO 2019-03-04 10:25:00 [facility] [address] [address] Patient Name: AI OLIVARES MR #: [id number] : 1940 Age/Sex: 78/F Req #: [id number] Adm Physician: Ordered by: IRINEO HOBSON MD Report #: [id number] Location: ER Room/Bed: Procedure: [id number] CT/CT CERVICAL SPINE WO Exam Date: 03/04/19 Exam Time: 930 REPORT STATUS: Signed History: Fall, hit left side of the face Comparison studies: None Technique: Axial images were obtained through the cervical region.. Coronal and sagittal images reconstructed from the axial data.. Intravenous contrast: None Dose modulation, iterative reconstruction, and/or weight based adjustment of the mA/kV was utilized to reduce the radiation dose to as low as reasonably achievable. Findings: Fractures: None. Soft tissues: No gross abnormalities. Atlantoaxial articulation: Degenerative changes without acute abnormality. Alignment: Normal lordosis. No scoliosis. Cervicomedullary junction: No abnormalities. The foramen magnum is patent. Vertebrae: No infection or neoplasm. Degenerative changes: At C5-6, moderate right and mild left foraminal narrowing, the remaining foramina are grossly patent (no moderate or severe narrowing). Small disc osteophyte complexes from C4 through C7 results in mild canal stenosis IMPRESSION: 1. No acute cervical spine abnormalities. Degenerative changes as described above. 2. Cannot exclude ligament, spinal cord and or vascular abnormalities on the basis of this examination. Signed by: DR Wilfred Caldera M.D. on 03/04/2019 10:28 AM Dictated By: WILFRED ROY MD 1028 Transcribed By: RUPERTO on 03/04/19 1028 COPY TO: IRINEO HOBSON MD CT MAXIO FAC/PARANMAIKEL WO 2019-03-04 10:18:[address] [address] Patient Name: AI OLIVARES MR #: [id number] : 1940 Age/Sex: 78/F Req #: [id number] Adm Physician: Ordered by: IRINEO HOBSON MD Report #: [id number] Location: ER Room/Bed: Procedure: [id number] CT/CT MAXIO FAC/PARANMAIKEL WO Exam Date: 03/04/19 Exam Time: 0931 REPORT STATUS: Signed History:Fall, hit left side of the face Comparison studies: None Technique: Axial images were obtained through the maxillofacial region. Coronal and sagittal images reconstructed from the axial data. Intravenous contrast: None Dose modulation, iterative reconstruction, and/or weight based adjustment of the mA/kV was utilized to reduce the radiation dose to as low as reasonably achievable. Findings: Soft tissues: Soft tissue hematoma at the left premaxillary and right zygomatic region. Atherosclerotic calcifications of the carotid bulbs Bones: No fractures or bone abnormalities. Orbits: Globes: No acute abnormality. Bilateral cataract surgery changes Extra or intraconal abnormalities: None. Paranasal sinuses: Clear Degenerative changes of the atlantoaxial joint partially visualized. IMPRESSION: 1. Left premaxillary and prezygomatic soft tissue hematoma without underlying fracture Signed by: DR Wilfred Caldera M.D. on 03/04/2019 10:25 AM Dictated By: WILFRED ROY MD 1025 Transcribed By: RUPERTO on 03/04/19 1025 COPY TO: IRINEO HOBSON MD CT BRAIN WO 2019-03-04 10:09:00 [address] [address] Patient Name: AI OLIVARES MR #: [id number] : 1940 Age/Sex: 78/F Req #: [id number] Adm Physician: Ordered by: IRINEO HOBSON MD Report #: [id number] Location: ER Room/Bed: Procedure: [id number] CT/CT BRAIN WO Exam Date: 03/04/19 Exam Time: 930 REPORT STATUS: Signed History:Fall, hit left side of the face Comparison studies:None Technique: Axial images were obtained from the skull base to the vertex. Coronal and sagittal images reconstructed from the axial data. Intravenous contrast: None Dose modulation, iterative reconstruction, and/or weight based adjustment of the mA/kV was utilized to reduce the radiation dose to as low as reasonably achievable. Findings: Scalp/skull: No abnormalities. Extra-axial spaces: No masses. No fluid collections. Brain sulci: Mildly prominent. Ventricles: Mild compensatory dilatation. No hydrocephalus. Parenchyma: Small hypodensities in the supratentorial white matter are small vessel ischemic changes. No masses, hemorrhage, acute or chronic cortical vascular insults. Sellar/suprasellar region: No abnormalities. Craniocervical junction: Patent foramen magnum. No Chiari one malformation. Incidental findings: Atherosclerotic calcifications in the carotid siphons and dolichoectatic right vertebral artery artery . Bilateral cataract surgery changes Impression: No acute abnormalities. Chronic findings: 1. Mild generalized volume loss. 2. Mild supratentorial white matter small vessel isc hemic changes. Signed by: DR Wilfred Caldera M.D. on 03/04/2019 10:12 AM Dictated By: WILFRED ROY MD 1012 Transcribed By: RUPERTO on 03/04/19 1012 COPY TO: IRINEO HOBSON MD RAD, WRIST, LEFT, COMPLETE (MIN 3 VIEWS) 2018-09-02 04:08:00 Reason for exam:- >ARM INJURY FINAL REPORT EXAM INATION: LEFT WRIST SERIES, 3 VIEWS CLINICAL INDICATION: [...] MDReport Verified Date/Time: 09/02/2018 04:08:26 Reading Location: [address] Reading Room ALYSIS W/ REFLEX URINE CULTURE 2018-05-17 15:04:00 Test Item COLOR (BEAKER) (test code = 470) Yellow CLARITY (BEAKER) (test code = 469) Clear SPECIFIC GRAVITY UA (BEAKER) (test code = 468) 1.015 1.001-1 .035 PH UA (BEAKER) (test code = 467) 6.5 5.0-8.0 PROTEIN UA (BEAKER) (test code = 464) Negative Negative GLUCOSE UA (BEAKER) (test code = 365) Negative Negative KETONES UA (BEAKER) (test code = 371) Negative Negative BILIRUBIN UA (BEAKER) (test code = 462) Negative Negative BLOOD UA (BEAKER) (test code = 461) Negative Negative NITRITE UA (BEAKER) (test code = 465) Negative Negative LEUKOCYTE ESTERASE UA (BEAKER) (test code = 466) Small Negat leeroy A UROBILINOGEN UA (BEAKER) (test code = 463) 3.0 mg/dL 0.2-1.0 H RBC UA (BEAKER) (test code = 519) 0 /HPF WBC UA (BEAKER) (test code = 520) 6 /HPF MUCUS (BEAKER) (test code = 1574) Rare SOURCE(BEAKER) (test code = 2795) BASIC METABOLIC [id number] 14:02:00* Test Item Value Reference Range Interpretation Comments SODIUM (BEAKER) (test code = 381) 139 meq/L 136-145 POTASSIUM (BEAKER) (test code = 379) 3.6 meq/L 3.5-5.1 CHLORIDE (BEAKER) (test code = 382) 101 meq/L 98-107 CO2 (BEAKER) (test code = 355) 29 meq/L 22-29 BLOOD UREA NITROGEN (BEAKER) (test code = 354) 29 mg/dL 7-21 H CREATININE (BEAKER) (test code = 358) 1.59 mg/dL 0.57-1.25 H GLUCOSE RANDOM (BEAKER) (test code = 652) 126 mg/dL 70-105 H CALCIUM (BEAKER) (test code = 697) 9.8 mg/dL 8.4-10.2 EGFR (BEAKER) (test code = 1092) mL/min/1.73 sq m INSUFFICIENT CLINICAL DATA TO CALCULATE ESTIMATED GFR. RAD, CHEST, PA OR AP, 1 [id number] 13:33:00Reason for exam:->FALLReason for exam:->ARM PAINReason for exam:->JAW PAINFINAL REPORT AP chest HISTORY: Fall COMPARISON: 10/16/2016 IMPRESSION:No acute osseous findings. Heart size upper limits of normal. Faint interstitial prominence may reflect mild edema. Signed: Charles Gilliland MDReport Verified Date/Time: 05/17/2018 13:33:32 Reading Location: [facility] Reading Room , SHOULDER, COMPLETE (MIN 2 VIEWS), [id number] 13:32:00Reason for exam:->FALLReason for exam:->ARM PAINReason for exam:->JAW PAINFINAL REPORT Left shoulder, two images. HISTORY: Shoulder pain. Fall. COMPARISON: None IMPRESSION:Frontal views of the left shoulder demonstrate grossly normal alignment without evidence for fracture. Signed: Charles Glililand Verified Date/Time: 05/17/2018 13:32:53 Reading Location: [facility] Reading Room , SPINE, CERVICAL, WO [id number] 13:27:00Reason for exam:->FALLReason for exam:->ARM PAINReason for [...] MDReport Verified Date/Time: 05/17/2018 13:27:22 Reading Location: [address] Neuro Reading Room , BRAIN, WITHOUT [id number] 13:27:00Reason for exam:->FALLReason for exam:->ARM PAINReason for [...] MDReport Verified Date/Time: 05/17/2018 13:27:58 Reading Location: [facility] B1 C013V Neuro Reading Room , MAXILLOFACIAL AREA, WO [id number] 13:27:00Reason for exam:- >FALLReason for exam:->ARM PAINReason [...] MDReport Verified Date/Time: 05/17/2018 13:27:58 Reading Location: [facility] C013V Neuro Reading Room W/PLT COUNT & AUTO [id number] 13:25:00 * Test Item Value Reference Range Interpretation Comments WHITE BLOOD CELL COUNT (BEAKER) (test code = 775) 5.0 K/ L 3.5- 10.5 RED BLOOD CELL COUNT (BEAKER) (test code = 761) 3.78 M/ L 3.93-5 .22 L HEMOGLOBIN (BEAKER) (test code = 410) 10.9 GM/DL 11.2-15.7 L HEMATOCRIT (BEAKER) (test code = 411) 32.2 % 34.1-44.9 L MEAN CORPUSCULAR VOLUME (BEAKER) (test code = 753) 85.2 fL 79. 4-94.8 MEAN CORPUSCULAR HEMOGLOBIN (BEAKER) (test code = 751) 28.8 pg 25.6-32.2 MEAN CORPUSCULAR HEMOGLOBIN CONC (BEAKER) (test code = 752) 33.9 GM/DL 32.2-35.5 RED CELL DISTRIBUTION WIDTH (BEAKER) (test code = 412) 14.4 % 11.7-14.4 PLATELET COUNT (BEAKER) (test code = 756) 144 K/CU MM 150-450 L MEAN PLATELET VOLUME (BEAKER) (test code = 754) 12.5 fL 9.4-12 .3 H NUCLEATED RED BLOOD CELLS (BEAKER) (test code = 413) 0 /100 WBC 0 -0 NEUTROPHILS RELATIVE PERCENT (BEAKER) (test code = 429) 51 % LYMPHOCYTES RELATIVE PERCENT (BEAKER) (test code = 430) 37 % MONOCYTES RELATIVE PERCENT (BEAKER) (test code = 431) 10 % EOSINOPHILS RELATIVE PERCENT (BEAKER) (test code = 432) 2 % BASOPHILS RELATIVE PERCENT (BEAKER) (test code = 437) 0 % NEUTROPHILS ABSOLUTE COUNT (BEAKER) (test code = 670) 2.56 K/ L 1.56-6.13 LYMPHOCYTES ABSOLUTE COUNT (BEAKER) (test code = 414) 1.85 K/ L 1.18-3.74 MONOCYTES ABSOLUTE COUNT (BEAKER) (test code = 415) 0.49 K/ L 0. 24-0.36 H EOSINOPHILS ABSOLUTE COUNT (BEAKER) (test code = 416) 0.09 K/ L 0.04-0.36 BASOPHILS ABSOLUTE COUNT (BEAKER) (test code = 417) 0.02 K/ L 0. 01-0.08 IMMATURE GRANULOCYTES-RELATIVE PERCENT (BEAKER) (test code = 2801) 1 % 0-1
--- NOTE | 2020-03-12 12:12 | Diagnostic Imaging Report ---
CT MAXIO FAC/PARANAS WO HISTORY: Fall COMPARISON: Face CT 03/04/2019 TECHNIQUE: Axial CT images through the face were obtained without contrast. Coronal/sagittal reformations were created. One or more of the following dose reduction techniques were used: Automated exposure control, adjustment of the mA and/or kV according to patient size, and/or utilization of iterative reconstruction technique. DISCUSSION: Mild right periorbital subcutaneous edema is present. No acute fracture is seen. There are mild degenerative changes throughout the spine. The orbits are intact. Bilateral ocular lens replacement are noted. Intraorbital contents are otherwise grossly unremarkable. The paranasal sinuses are clear. There is mild generalized cerebral volume loss. Mild periventricular white matter hypodensities are likely chronic microvascular ischemic changes. Carotid siphon and intradural vertebral artery calcifications are present. Mild to moderate bilateral carotid bulb calcified plaque is also seen. The submandibular glands are atrophic. IMPRESSION: No acute osseous abnormalities in the face. Signed by: Dr. Piero Mcqueen M.D. on 03/12/2020 12:09 PM
--- NOTE | 2020-03-12 13:11 | Diagnostic Imaging Report ---
Right knee, 3 views. History: Fall. Findings: There is prepatellar soft tissue swelling and increase suprapatellar soft tissue density. The bones are osteopenic. A transverse fracture of the inferior portion of the patella is present with 1 cm inferior displacement. The remaining bones are intact. There are no lytic or sclerotic lesions. Mild medial joint space narrowing with osteophytosis is present. Vascular calcifications are noted. IMPRESSION: Transverse inferior patellar fracture with associated joint effusion. Signed by: Jerome Sousa on 03/12/2020 1:08 PM
--- NOTE | 2020-03-12 13:13 | Diagnostic Imaging Report ---
Left forearm, 2 views. History: Fall. Findings: There are diffuse vascular calcifications. The bones are diffusely osteopenic. There is no evidence of fracture or dislocation. There are no lytic or sclerotic lesions. Degenerative changes are noted at the wrist. IMPRESSION: No acute osseous abnormality of the left forearm. Signed by: Jerome Sousa on 03/12/2020 1:10 PM
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
== END 2020-03-12 13:54 | disposition home or self-care (01) ==
LOC: ER 10:51
DX: S82.091A Other fracture of right patella, initial encounter for closed fracture (principal); S00.83XA Contusion of other part of head, initial encounter; S51.812A Laceration without foreign body of left forearm, initial encounter; Y04.8XXA Assault by other bodily force, initial encounter; Y92.008 Other place in unspecified non-institutional (private) residence as the place of occurrence of the external cause; G30.9 Alzheimer's disease, unspecified; F02.80 Dementia in other diseases classified elsewhere, unspecified severity, without behavioral disturbance, psychotic disturbance, mood disturbance, and anxiety; I10 Essential (primary) hypertension; E11.9 Type 2 diabetes mellitus without complications; E78.5 Hyperlipidemia, unspecified; I48.91 Unspecified atrial fibrillation
CPT/HCPCS: 70486; 99283

== ENCOUNTER 2020-05-05 17:43 | Emergency (ER) | payer OTHER ==
[~2020-05-05] VITALS: Ht 157.5 cm; Wt 59.0 kg
[2020-05-05] MEDS ORDERED: PANTOPRAZOLE 40 MG 10ML VIAL IV NR (18:03)
[2020-05-05] MEDS ORDERED: SODIUM CHLORIDE 0.9% 1000ML 1,000 ML IV STA ×2 (18:03)
--- NOTE | 2020-05-05 18:12 | NUR ---
Patient's daughter Trish Mcdaniel number [phone].
[2020-05-05] MEDS ORDERED: VANCOMYCIN 1GM/NS 250 ML 250 ML IV NR (18:15)
[2020-05-05] MEDS ORDERED: CEFEPIME 1GM/NS 0.9% 50 ML 50 ML IV SCH (18:15)
[2020-05-05] MEDS ORDERED: ONDANSETRON HCL INJ 2MG/ML 2ML 2 MG/ML VIAL IV NR (18:30)
[2020-05-05 18:54] LABS: BASOPHILS % 0.3 % (0.0-1.0); HEMATOCRIT 30.1 % (34.2-44.1); HEMOGLOBIN 10.5 g/dL (12.0-16.0); LYMPHOCYTES # (AUTO) 1.1 (1.0-3.2); LYMPHOCYTES % 15.2 % (18.0-39.1); MEAN CORPUSCULAR HEMOGLOBIN 28.8 pg (28-32); MEAN CORPUSCULAR HGB CONC 34.9 g/dL (31-35); MEAN CORPUSCULAR VOLUME 82.5 fL (81-99); MONOCYTES # (AUTO) 0.5 (0.2-0.8); MONOCYTES % 6.6 % (4.4-11.3); NEUTROPHILS # (AUTO) 5.8 (2.1-6.9); NEUTROPHILS % 77.6 % (38.7-80.0); PLATELET COUNT 118 x10e3/uL (140-360); RED BLOOD COUNT 3.65 x10e6/uL (3.6-5.1); RED CELL DISTRIBUTION WIDTH 14.6 % (11.7-14.4)
[2020-05-05 19:11] LABS: INR 1.04; PROTHROMBIN TIME 14.2 seconds (11.9-14.5)
--- NOTE | 2020-05-05 19:12 | NUR ---
WALKING ROUNDS WITH FLO RN-ASSUMED CARE
--- NOTE | 2020-05-05 19:15 | Diagnostic Imaging Report ---
EXAMINATION: CHEST SINGLE (PORTABLE) INDICATION: Hypotension. COMPARISON: None FINDINGS: TUBES and LINES: None. LUNGS/PLEURA: There is bibasilar atelectasis. No focal consolidation, pleural effusion or pneumothorax. HEART AND MEDIASTINUM: The cardiomediastinal silhouette is unremarkable. BONES AND SOFT TISSUES: No acute osseous lesion. Soft tissues are unremarkable. UPPER ABDOMEN: No free air under the diaphragm. IMPRESSION: No acute thoracic radiographic abnormality. Bibasilar atelectasis. Signed by: Joselito Winter MD on 05/05/2020 7:12 PM
[2020-05-05 19:20] LABS: ALBUMIN 2.8 g/dL (3.5-5.0); ALBUMIN/GLOBULIN RATIO 0.8 (0.8-2.0); ANION GAP 14.6 mmol/L (8-16); CALCIUM 9.6 mg/dL (8.4-10.2); CREATININE, SERUM 1.78 mg/dL (0.57-1.11); MAGNESIUM 1.7 MG/DL (1.3-2.1); POTASSIUM 3.6 mmol/L (3.5-5.1)
--- NOTE | 2020-05-05 19:22 | Emergency Department Note ---
History of Present Illnes History of Present Illness Chief Complaint: General Medicine Complaints History of Present Illness This is a 79 year old female pt presents for not eating or drinking for past 3 days, pt has h/o alz dementia, . Historian: Patient, Family Member Arrival Mode: Car Onset (how long ago): day(s) (3) Location: none Quality: not eating or drinking Radiation: Reports non-radiation Severity: moderate Onset quality: gradual Duration (how long): day(s) (3) Timing of current episode: constant Progression: worsening Chronicity: new Context: Denies recent illness, Denies recent surgery Relieving factors: none Exacerbating factors: none Associated symptoms: Reports denies other symptoms Past Medical/Family History Physician Review I have reviewed the patient's past medical and family history. Any updates have been documented here. Past Medical History Unable to obtain PMH: altered mental status (pt with alz dementia) Recent Fever: No Clinical Suspicion of Infectio: No New/Unexplained Change in Ment: No Past Medical History: Hypertension, Diabetes, A-Fib, Hyperlipedemia Other Medical History: AZLHIMERS Other Surgery: FAMILY UNABLE TO RECALL Social History Smoking Cessation: Unknown if ever smoked Counseling Performed: No Alcohol Use: None Any Illegal Drug Use: No Other Last Tetanus: UNKNOWN Any Pre-Existing Lines (PICC,: No Review of Systems ROS Narrative Unable to obtain ROS: altered mental status (pt with alz dementia) Physical Exam Related Data Allergies: Coded Allergies: benzonatate (Verified Allergy, Unknown, 03/12/20) ciprofloxacin (Verified Allergy, Unknown, 03/12/20) Triage Vital Signs Vital Signs Date Time Temp Pulse Resp B/P (MAP) Pulse Ox O2 Delivery O2 Flow Rate FiO2 05/05/20 18:39 97.4 102 14 83/72 99 Room Air Vital signs reviewed: Yes Physical Exam CONSTITUTIONAL Constitutional: Present well-developed, Present well-nourished HENT HENT: Present normocephalic, Present atraumatic, Present mucosae dry, Present nose normal HENT L/R: Present left ext ear normal, Present right ext ear normal EYES Eyes: Reports PERRL, Reports conjunctivae normal NECK Neck: Present ROM normal PULMONARY Pulmonary: Present effort normal, Present breath sounds normal CARDIOVASCULAR Cardiovascular: Present regular rhythm, Present heart sounds normal, Present capillary refill normal, Present normal rate GASTROINTESTINAL Abdominal: Present soft, Present nontender, Present bowel sounds normal GENITOURINARY Genitourinary: Present exam deferred SKIN Skin: Present warm, Present dry, Present other (poor skin turger) MUSCULOSKELETAL Musculoskeletal: Present ROM normal NEUROLOGICAL Neurological: Present alert, Present oriented x 3, Present no gross motor or sensory deficits PSYCHOLOGICAL Psychological: Present mood/affect normal, Present judgement normal Results Laboratory Result Diagram: 05/05/20 1830 Laboratory Laboratory Tests Test 05/05/20 18:32 05/05/20 18:30 White Blood Count 7.52 x10e3/uL (4.8-10.8) Red Blood Count 3.65 x10e6/uL (3.6-5.1) Hemoglobin 10.5 g/dL (12.0-16.0) Hematocrit 30.1 % (34.2-44.1) Mean Corpuscular Volume 82.5 fL (81-99) Mean Corpuscular Hemoglobin 28.8 pg (28-32) Mean Corpuscular Hemoglobin Concent 34.9 g/dL (31-35) Red Cell Distribution Width 14.6 % (11.7-14.4) Platelet Count 118 x10e3/uL (140-360) Neutrophils (%) (Auto) 77.6 % (38.7-80.0) Lymphocytes (%) (Auto) 15.2 % (18.0-39.1) Monocytes (%) (Auto) 6.6 % (4.4-11.3) Eosinophils (%) (Auto) 0.0 % (0.0-6.0) Basophils (%) (Auto) 0.3 % (0.0-1.0) Neutrophils # (Auto) 5.8 (2.1-6.9) Lymphocytes # (Auto) 1.1 (1.0-3.2) Monocytes # (Auto) 0.5 (0.2-0.8) Eosinophils # (Auto) 0.0 (0.0-0.4) Basophils # (Auto) 0.0 (0.0-0.1) Absolute Immature Granulocyte (auto 0.02 x10e3/uL (0-0.1) Prothrombin Time 14.2 seconds (11.9-14.5) Prothromb Time International Ratio 1.04 Activated Partial Thromboplast Time 30.0 seconds (23.8-35.5) Urine Color Yellow (YELLOW) Urine Clarity Sl cloudy (CLEAR) Urine pH 5.5 (5 - 7) Urine Specific [place] 1.025 (1.010-1.025) Urine Protein 2+ (NEGATIVE) Urine Glucose (UA) Negative (NEGATIVE) Urine Ketones Trace (NEGATIVE) Urine Blood Moderate (NEGATIVE) Urine Nitrite Negative (NEGATIVE) Urine Bilirubin Moderate (NEGATIVE) Urine Urobilinogen 4 mg/dL (0.2 - 1) Urine Leukocyte Esterase Negative (NEGATIVE) Urine RBC 6-10 /HPF (0-5) Urine WBC 0-5 /HPF (0-5) Urine Epithelial Cells Few /LPF (NONE) Urine Amorphous Sediment Moderate (FEW) Urine Bacteria Few /HPF (NONE) Sodium Level 140 mmol/L (136-145) Potassium Level 3.6 mmol/L (3.5-5.1) Chloride Level 106 mmol/L (98-107) Carbon Dioxide Level 23 mmol/L (22-29) Anion Gap 14.6 mmol/L (8-16) Blood Urea Nitrogen 33 mg/dL (7-26) Creatinine 1.78 mg/dL (0.57-1.11) Estimat Glomerular Filtration Rate 27 ML/MIN (60-) BUN/Creatinine Ratio 19 (6-25) Glucose Level 83 mg/dL (74-118) Lactic Acid Level 0.8 mmol/L (0.5-2.0) Calcium Level 9.6 mg/dL (8.4-10.2) Magnesium Level 1.7 MG/DL (1.3-2.1) Total Bilirubin 2.6 mg/dL (0.2-1.2) Aspartate Amino Transf (AST/SGOT) 628 IU/L (5-34) Alanine Aminotransferase (ALT/SGPT) 240 IU/L (0-55) Alkaline Phosphatase 111 IU/L (40-150) Creatine Kinase 331 IU/L (29-168) Creatine Kinase MB 6.00 ng/mL (0-5.0) Troponin I 0.079 ng/mL (0-0.300) B-Type Natriuretic Peptide 47.1 pg/mL (0-100) Total Protein 6.5 g/dL (6.5-8.1) Albumin 2.8 g/dL (3.5-5.0) Globulin 3.7 g/dL (2.3-3.5) Albumin/Globulin Ratio 0.8 (0.8-2.0) Laboratory Tests Test 05/05/20 18:32 05/05/20 18:30 White Blood Count 7.52 x10e3/uL (4.8-10.8) Red Blood Count 3.65 x10e6/uL (3.6-5.1) Hemoglobin 10.5 g/dL (12.0-16.0) Hematocrit 30.1 % (34.2-44.1) Mean Corpuscular Volume 82.5 fL (81-99) Mean Corpuscular Hemoglobin 28.8 pg (28-32) Mean Corpuscular Hemoglobin Concent 34.9 g/dL (31-35) Red Cell Distribution Width 14.6 % (11.7-14.4) Platelet Count 118 x10e3/uL (140-360) Neutrophils (%) (Auto) 77.6 % (38.7-80.0) Lymphocytes (%) (Auto) 15.2 % (18.0-39.1) Monocytes (%) (Auto) 6.6 % (4.4-11.3) Eosinophils (%) (Auto) 0.0 % (0.0-6.0) Basophils (%) (Auto) 0.3 % (0.0-1.0) Neutrophils # (Auto) 5.8 (2.1-6.9) Lymphocytes # (Auto) 1.1 (1.0-3.2) Monocytes # (Auto) 0.5 (0.2-0.8) Eosinophils # (Auto) 0.0 (0.0-0.4) Basophils # (Auto) 0.0 (0.0-0.1) Absolute Immature Granulocyte (auto 0.02 x10e3/uL (0-0.1) Lab results reviewed: Yes Laboratory comments PT WITH ELEVATED LFTS CT ABD PELVIS ORDERED TO EVAL FOR GALLSTONES, PANCREATIC MASS Imaging Imaging results reviewed: Yes Impressions Procedure: [id number] DX/CHEST SINGLE (PORTABLE) Exam Date: 05/05/20 Exam Time: 1851 REPORT STATUS: Signed EXAMINATION: CHEST SINGLE (PORTABLE) INDICATION: Hypotension. COMPARISON: None FINDINGS: TUBES and LINES: None. LUNGS/PLEURA: There is bibasilar atelectasis. No focal consolidation, pleural effusion or pneumothorax. HEART AND MEDIASTINUM: The cardiomediastinal silhouette is unremarkable. BONES AND SOFT TISSUES: No acute osseous lesion. Soft tissues are unremarkable. UPPER ABDOMEN: No free air under the diaphragm. IMPRESSION: No acute thoracic radiographic abnormality. Bibasilar atelectasis. Signed by: Ziggy Soto MD on 05/05/2020 7:12 PM Dictated By: ZIGGY SOTO MD 11 Transcribed By: RUPERTO on 05/05/201911 Procedure: [id number] CT/CT BRAIN WO Exam Date: 05/05/20 Exam Time: 1933 REPORT STATUS: Signed EXAMINATION: Head CT without contrast. HISTORY:Altered mental status. COMPARISON:CT head from 03/04/2019. Nec TECHNIQUE: Multidetector axial images were obtained from the foramen magnum to the vertex without contrast. The images were reconstructed using brain and bone algorithms. Thin section brain images were reformatted into coronal and sagittal planes. Dose modulation, iterative reconstruction, and/or weight based adjustment of the mA/kV was utilized to reduce the radiation dose to as low as reasonably achievable. Intravenous contrast: None IMAGE QUALITY: Acceptable. FINDINGS: Skull/scalp: No lytic or blastic. lesions. No surgical changes. Parenchyma: No abnormal density. Persistent nonspecific bilateral frontoparietal patchy white matter hypodensity are likely related to small vessel ischemic changes. No acute hemorrhage, mass or acute major vascular territorial infarct. Arteries: No density suggestive of thrombosis. Unchanged advanced atherosclerotic calcification in bilateral carotid siphon and dolichoectatic right vertebral artery. Dural sinuses: No abnormal density suggestive of thrombosis. Ventricles: No hydrocephalus or displacement. Extra-axial spaces: No abnormal density. Brain volume: Mild generalized age-related cerebral volume loss. Craniocervical junction: No mass, Chiari malformation, or basilar invagination. Sella: No mass. Paranasal/mastoid sinuses: Imaged portions unremarkable. IMPRESSION: No acute intracranial abnormality. No change since CT brain from 03/04/2019. Chronic findings: 1. Mild supratentorial white matter microvascular ischemic changes. 2. Mild generalized age-related cerebral volume loss. Signed by: Dr. Carolina Lopez M.D. on 05/05/2020 7:53 PM Dictated By: CAROLINA LOPEZ MD 52 Transcribed By: RUPERTO on 05/05/201952 COPY TO: IRINEO HOBSON MD~ CT ABD/PELVIS MPRESSION: 1. Gallbladder distention and cholelithiasis. These findings, in the setting of elevated LFTs, raise concern for cholecystitis, recommend right upper quadrant ultrasound. 2. Opacities in the lung bases can be due to atelectasis or pneumonia. 3. Moderate volume of dense stool in the rectum, correlate for fecal retention. Signed by: Yony Cabezas DO on 05/05/2020 10:27 PM Procedures 12 Lead ECG Interpretation ECG Interpretation : ECG: ECG 1 Construction Project Engineer: Interpreted by ED physician Date: May 05, 2020 Time: 19:00 Rhythm: sinus rhythm Rate: normal BPM: 88 QRS axis: normal Conduction: LAFB ST segments normal: Yes T waves normal: No (non secific changes) Q waves: V1, V2 Clinical Impression: normal ECG Assessment & Plan Medical Decision Making MDM pt with decreased appetite for 3 days, initial bp low in triage, however upon being placed in room bp normal and has been since without intervention cbc, cmp, ekg, cardiac enzymes, cxr, ua, blood culture, urine culture ordered to eval for electrolyte abnormality, dehydration, renal insufficiency, renal failure, uti, pneumonia ns 1 liter if ordered cefepime 1 gram iv ordered PT WILL REQUIRE TRANSFER TO ANOTHER HOSPITAL NO BEDS ARE AVAILABLE AT THIS FACILITY 23:[address] PORRAS (GI) AT [facility], HE WILL BE HAPPY TO CONSULT ON PT BUT STATES HOSPITALIST WILL NEED TO ACCEPT PT, AWAITING TO HERE FROM HOSPITALIST AT THIS TIME [address] ROWELL(HOSPITALIST0 HE ACCEPTS PT FOR TRANSFER TO [facility] Assessment & Plan Final Impression: (1) Cholelithiases (2) Biliary obstruction Depart Disposition: TRANS TO OTHER [facility] Last Vital Signs Date Time Temp Pulse Resp B/P (MAP) Pulse Ox O2 Delivery O2 Flow Rate FiO2 05/05/20 18:51 97.5 81 15 109/52 100 05/05/20 18:39 Room Air Medications in the ED Pantoprazole Sodium 40 mg ONCE IV ; Start 05/05/20 at 18:03; Stop 05/05/20 at 19:59 Ondansetron HCl 4 mg ONCE IV ; Start 05/05/20 at 18:30; Stop 05/05/20 at 19:59 Sodium Chloride 1,000 ml @ 0 mls/hr Q0M STAT IV ; Start 05/05/20 at 18:03; Stop 05/05/20 at 18:09; Status DC Sodium Chloride 1,000 ml @ 0 mls/hr Q0M STAT IV ; Start 05/05/20 at 18:03; Stop 05/05/20 at 18:09; Status DC Cefepime HCl 50 ml @ 100 mls/hr Q12H IV ; Start 05/05/20 at 18:15; Stop 05/12/20 at 18:14 Vancomycin HCl 250 ml @ 200 mls/hr NOW IV ; Start 05/05/20 at 18:15; Stop 05/05/20 at 19:59 DAREK CARUSO MD May 05, 2020 19:22
[2020-05-05 19:29] LABS: B-TYPE NATRIURETIC PEPTIDE2 47.1 pg/mL (0-100)
[2020-05-05 19:32] LABS: CLARITY,URINE SL CLOUDY (CLEAR); COLOR,URINE YELLOW (YELLOW); LEUKOCYTE ESTERASE ,URINE NEGATIVE (NEGATIVE); NITRITE,URINE NEGATIVE (NEGATIVE); PROTEIN,URINE DIPSTICK 2+ (NEGATIVE)
[2020-05-05 19:33] LABS: BILIRUBIN,URINE MODERATE (NEGATIVE); KETONES,URINE TRACE (NEGATIVE); URINE UROBILINOGEN 4 mg/dL (0.2 - 1); WBC,URINE (MAN) 0-5 /HPF (0-5)
[2020-05-05 19:34] LABS: AMORPHOUS SEDIMENT,URINE MODERATE (FEW); BACTERIA,URINE FEW /HPF; EPITHELIAL CELLS,URINE FEW /LPF
--- NOTE | 2020-05-05 19:56 | Diagnostic Imaging Report ---
EXAMINATION: Head CT without contrast. HISTORY:Altered mental status. COMPARISON:CT head from 03/04/2019. Nec TECHNIQUE: Multidetector axial images were obtained from the foramen magnum to the vertex without contrast. The images were reconstructed using brain and bone algorithms. Thin section brain images were reformatted into coronal and sagittal planes. Dose modulation, iterative reconstruction, and/or weight based adjustment of the mA/kV was utilized to reduce the radiation dose to as low as reasonably achievable. Intravenous contrast: None IMAGE QUALITY: Acceptable. FINDINGS: Skull/scalp: No lytic or blastic. lesions. No surgical changes. Parenchyma: No abnormal density. Persistent nonspecific bilateral frontoparietal patchy white matter hypodensity are likely related to small vessel ischemic changes. No acute hemorrhage, mass or acute major vascular territorial infarct. Arteries: No density suggestive of thrombosis. Unchanged advanced atherosclerotic calcification in bilateral carotid siphon and dolichoectatic right vertebral artery. Dural sinuses: No abnormal density suggestive of thrombosis. Ventricles: No hydrocephalus or displacement. Extra-axial spaces: No abnormal density. Brain volume: Mild generalized age-related cerebral volume loss. Craniocervical junction: No mass, Chiari malformation, or basilar invagination. Sella: No mass. Paranasal/mastoid sinuses: Imaged portions unremarkable. IMPRESSION: No acute intracranial abnormality. No change since CT brain from 03/04/2019. Chronic findings: 1. Mild supratentorial white matter microvascular ischemic changes. 2. Mild generalized age-related cerebral volume loss. Signed by: Dr. Carolina Amado M.D. on 05/05/2020 7:53 PM
[2020-05-05] MEDS ORDERED: DIATRIZOATE MEGL/DIATRIZOA SOD 30 ML BTL PO ONE (20:31)
[2020-05-05 20:44] LABS: LYMPHOCYTES % (MANUAL) 16 % (19-48); MONOCYTES % (MANUAL) 6 % (3.4-9.0); NEUTROPHILS % (MANUAL) 78 % (40-74); PLATELET ESTIMATE SLIGHTLY DECREASED; PLATELET MORPHOLOGY COMMENT NORMAL; RBC MORPHOLOGY COMMENT NORMAL
[2020-05-05 20:46] LABS: AMYLASE 70 U/L (25-125); LIPASE 99 U/L (8-78)
--- NOTE | 2020-05-05 22:31 | Diagnostic Imaging Report ---
EXAM: CT Abdomen and Pelvis WITHOUT contrast INDICATION: Elevated LFTs COMPARISON: None. TECHNIQUE: Abdomen and pelvis were scanned utilizing a multidetector helical scanner from the lung base to the pubic symphysis without administration of IV contrast. Absence of intravenous contrast decreases sensitivity for detection of focal lesions and vascular pathology. Coronal and sagittal reformations were obtained. Routine protocol was performed. IV CONTRAST: None ORAL CONTRAST: None COMPLICATIONS: None RADIATION DOSE: Total DLP: 281 mGy*cm Estimated effective dose: (DLP x 0.015 x size factor) mSv CTDIvol has been reviewed. It is below the limits set by the Radiation Protocol Committee (RPC). Dose modulation, iterative reconstruction, and/or weight based adjustment of the mA/kV was utilized to reduce the radiation dose to as low as reasonably achievable. FINDINGS: LINES and TUBES: Urinary bladder Paz catheter in place, tip in the bladder lumen.. LOWER THORAX: Bibasilar ground glass opacities and atelectasis. Coronary artery calcifications HEPATOBILIARY: Benign calcified hepatic granulomata. No suspicious focal hepatic lesions. No biliary ductal dilation. GALLBLADDER: Gallbladder distention, 4.9 cm in fundal diameter. Radiopaque gallstone layering in the gallbladder fundus lumen. Question trace pericholecystic fat stranding. No wall thickening. SPLEEN: No splenomegaly. PANCREAS: No focal masses or ductal dilatation. ADRENALS: No adrenal nodules KIDNEYS/URETERS: No hydronephrosis. No cystic or solid mass lesions. No stones. GI TRACT: No abnormal distention, wall thickening, or evidence of bowel obstruction. No appendicitis. PELVIC ORGANS/BLADDER: Decompressed urinary bladder with Paz catheter in place, tracer in the bladder lumen is likely due to instrumentation. Hysterectomy. No adnexal masses. LYMPH NODES: No lymphadenopathy. VESSELS: Vascular calcifications. PERITONEUM / RETROPERITONEUM: No free air or fluid. BONES: Degenerative changes. Osseous demineralization. SOFT TISSUES: Unremarkable. IMPRESSION: 1. Gallbladder distention and cholelithiasis. These findings, in the setting of elevated LFTs, raise concern for cholecystitis, recommend right upper quadrant ultrasound. 2. Opacities in the lung bases can be due to atelectasis or pneumonia. 3. Moderate volume of dense stool in the rectum, correlate for fecal retention. Signed by: Yony Cabezas DO on 05/05/2020 10:27 PM
[2020-05-05] MEDS ORDERED: PIPER-TAZ 3.375 GM 50 ML IV ONE (23:00)
== END 2020-05-06 01:42 | disposition other institution (70) ==
LOC: ER 17:50
DX: K80.51 Calculus of bile duct without cholangitis or cholecystitis with obstruction (principal); G30.9 Alzheimer's disease, unspecified; F02.80 Dementia in other diseases classified elsewhere, unspecified severity, without behavioral disturbance, psychotic disturbance, mood disturbance, and anxiety; I10 Essential (primary) hypertension; E11.9 Type 2 diabetes mellitus without complications; E78.5 Hyperlipidemia, unspecified; I48.91 Unspecified atrial fibrillation
CPT/HCPCS: 36415; 51700; 70450; 71045; 74176; 80053; 81001; 82150; 82550; 82553; 83605; 83690; 83735; 83880; 84484; 85025; 85610; 85730; 87040; 87086; 87635; 93005; 99284; C9113; J0692; J2405; J2543; J3370; J7030; U0002